=== PATIENT | female | born 1935 | race Two or more races ===

== ENCOUNTER → 2016-07-13 | Outpatient (CLI) | payer MEDICARE | END | disposition home or self-care (01) | LOC: RADPV 15:52 | PROVIDERS: ATTEND Orthopaedic Surgery | DX: M11.261 Other chondrocalcinosis, right knee (principal); M23.8X1 Other internal derangements of right knee ==

== ENCOUNTER → 2016-09-26 | Outpatient (CLI) | payer MEDICARE | END | disposition home or self-care (01) | LOC: RADPV 14:42 | PROVIDERS: ATTEND Orthopaedic Surgery | DX: M85.88 Other specified disorders of bone density and structure, other site (principal); Z96.621 Presence of right artificial elbow joint ==